=== PATIENT | male | born 1980 | race Two or more races ===

== ENCOUNTER 2019-04-13 01:26 | Emergency (ER) | payer SELFPAY ==
[~2019-04-13] VITALS: Ht 172.7 cm; Wt 78.9 kg
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
[2019-04-13 01:46] VITALS: BP 147/92
--- NOTE | 2019-04-13 01:59 | NUR ---
Patient eloped from facility. ER MD notified. family at the bed side.
== END 2019-04-13 02:05 | disposition left against medical advice (07) ==
LOC: ER 01:28
DX: Z53.21 Procedure and treatment not carried out due to patient leaving prior to being seen by health care provider (principal)